=== PATIENT | female | born 1985 | race Asian ===

== ENCOUNTER 2020-07-12 04:20 | Day surgery (SDC) | payer OTHER ==
[2020-07-11 16:39] VITALS: BMI 21.5
[2020-07-12] MEDS ORDERED: ONDANSETRON 4 MG/2 ML VIAL IVPUSH PRN (13:13)
[2020-07-12] MEDS ORDERED: oxyCODONE HCL 5 MG TABLET PO PRN (13:13)
[2020-07-12] MEDS ORDERED: ACETAMINOPHEN 325 MG TABLET (FP) PO PRN (13:13)
[2020-07-12] MEDS ORDERED: LACTATED RINGERS SOLUTION 1,000 ML IV SCH (13:15)
[2020-07-12] MEDS ORDERED: PROPOFOL 20 ML ONE (13:30)
[2020-07-12] MEDS ORDERED: KETOROLAC TROMETHAMINE 30 MG/1 ML VIAL ONE (13:30)
[2020-07-12] MEDS ORDERED: MIDAZOLAM HCL 2 MG/2 ML SINGLE DOSE VIAL ONE (13:30)
[2020-07-12] MEDS ORDERED: LIDOCAINE HCL/PF 2% SDV 5ML VIAL ONE (13:30)
[2020-07-12] MEDS ORDERED: ONDANSETRON 4 MG/2 ML VIAL ONE (14:17)
[2020-07-12 16:31] VITALS: TEMP 97.8
[2020-07-12 18:11] VITALS: BP 120/70; PULSE 68
== END 2020-07-12 17:00 | disposition home or self-care (01) ==
LOC: JASU-SURG 04:20
PROVIDERS: ATTEND Obstetrics & Gynecology
PROC: 10D17ZZ Extraction of Products of Conception, Retained, Via Natural or Artificial Opening (ICD-10-PCS; principal; 2020-07-12 14:00)
DX: O03.4 Incomplete spontaneous abortion without complication (principal)
CPT/HCPCS: 86850; 86900; 86901; 88305-TC; 94760

== ENCOUNTER 2021-10-16 10:14 | Emergency (ER) | payer OTHER ==
[2021-10-16 10:26] VITALS: BMI 23.3
[2021-10-16 12:35] LABS: BASO % 0.5 % (0-2.0); EOS % 2.4 % (0-4.5); HEMATOCRIT 36.8 % (32.4-45.2); HEMOGLOBIN 12.1 GM/dL (10.7-15.3); LYMPH % 11.9 % (8-40); MCH 27.9 pg (25.7-33.7); MCHC 32.8 g/dl (32.0-36.0); MEAN PLT VOLUME 11.2 fl (7.5-11.1); MONO % 4.6 % (3.8-10.2); NEUT % 80.6 % (42.8-82.8); PLATELET COUNT 139 10^3/uL (134-434); RBC 4.32 M/mm3 (3.60-5.2); RDW 14.7 % (11.6-15.6); WHITE BLOOD COUNT 8.7 K/mm3 (4.0-10.0)
[2021-10-16 12:36] LABS: PH,URINE 6.5 (5.0-8.0); URINE APPEARANCE CLEAR; URINE BILIRUBIN NEGATIVE (NEGATIVE); URINE COLOR YELLOW; URINE GLUCOSE (UA) 3+ (NEGATIVE); URINE KETONE NEGATIVE (NEGATIVE); URINE LEUK ESTERASE NEGATIVE (NEGATIVE); URINE NITRITE NEGATIVE (NEGATIVE); URINE PROTEIN NEGATIVE (NEGATIVE); URINE UROBILINOGEN 0.2 mg/dL (0.2-1.0)
[2021-10-16 12:55] LABS: ALBUMIN 2.8 g/dl (3.4-5.0); BLOOD UREA NITROGEN 5.6 mg/dL (7-18); CALCIUM 8.5 mg/dL (8.5-10.1)
[2021-10-16 12:58] LABS: CREATININE 0.5 mg/dL (0.55-1.3)
[2021-10-16 13:00] LABS: BILIRUBIN,TOTAL 0.3 mg/dL (0.2-1); TOT PROT 6.6 g/dl (6.4-8.2)
[2021-10-16] MEDS ORDERED: ACETAMINOPHEN 1000 MG/100 ML BAG IVPB ONE (13:14)
[2021-10-16] MEDS ORDERED: SODIUM CHLORIDE 0.9% 500 ML INFUS.BAG IV ONE (13:14)
[2021-10-16] MEDS ORDERED: ONDANSETRON 4 MG/2 ML VIAL IVPUSH ONE (13:14)
[2021-10-16] MEDS ORDERED: ACETAMINOPHEN INJECTION 100 ML IVPB ONE (13:45)
[2021-10-16] MEDS ORDERED: ONDANSETRON 4 MG/2 ML VIAL ONE (13:45)
[2021-10-16 14:21] LABS: CALCIUM 8.7 mg/dL (8.5-10.1)
[2021-10-16 14:22] LABS: BLOOD UREA NITROGEN 4.7 mg/dL (7-18)
[2021-10-16 14:25] LABS: CREATININE 0.5 mg/dL (0.55-1.3)
[2021-10-16 16:02] VITALS: BP 104/68; PULSE 80; TEMP 97.1
== END 2021-10-16 16:35 | disposition home or self-care (01) ==
LOC: JER 10:14
PROC: 3E033GC Introduction of Other Therapeutic Substance into Peripheral Vein, Percutaneous Approach (ICD-10-PCS; principal; 2021-10-16)
DX: O26.892 Other specified pregnancy related conditions, second trimester (principal); N13.30 Unspecified hydronephrosis; Z3A.19 19 weeks gestation of pregnancy
CPT/HCPCS: 36415; 76775-TC; 76815-TC; 80048; 80053; 81003; 85025; 99284-25

== ENCOUNTER 2022-02-12 10:55 | Inpatient (IN) | payer OTHER ==
[2022-02-12 11:38] LABS: RETICULOCYTES 1.3 % (0.5-1.5)
[2022-02-12 11:39] LABS: HEMATOCRIT 40.1 % (32.4-45.2); HEMOGLOBIN 12.7 GM/dL (10.7-15.3); LYMPH % 22.8 % (8-40); MCH 27.1 pg (25.7-33.7); MCHC 31.8 g/dl (32.0-36.0); MEAN CELL VOLUME 85.4 fl (80-96); MEAN PLT VOLUME 10.7 fl (7.5-11.1); MONO % 4.1 % (3.8-10.2); NEUT % 71.1 % (42.8-82.8); PLATELET COUNT 134 10^3/uL (134-434); RBC 4.69 M/mm3 (3.60-5.2); RDW 15.9 % (11.6-15.6); WHITE BLOOD COUNT 7.6 K/mm3 (4.0-10.0)
[2022-02-12 11:52] LABS: INR 0.91 (0.83-1.09); PROTHROMBIN TIME (PATIENT) 10.5 SEC (9.7-13.0)
[2022-02-12 11:55] LABS: ACTIVATED PTT 28.5 SECONDS (25.2-36.5)
[2022-02-12] MEDS ORDERED: CITRIC ACID/SODIUM CITRATE 30 ML UNIT-DOSE CUP PO ONE (11:55)
[2022-02-12] MEDS ORDERED: ELECTROLYTE-148 SOLN 500 ML IV ONE (11:55)
[2022-02-12 11:59] LABS: BLOOD UREA NITROGEN 8.3 mg/dL (7-18); CALCIUM 9.6 mg/dL (8.5-10.1)
[2022-02-12] MEDS ORDERED: ELECTROLYTE-148 SOLN 1,000 ML IV SCH ×2 (12:00→12:30)
[2022-02-12] MEDS ORDERED: ELECTROLYTE-148 SOLN 500 ML IV SCH (12:00)
[2022-02-12 12:02] LABS: CREATININE 0.5 mg/dL (0.55-1.3); SGOT/AST 55 U/L (15-37); SGPT/ALT 126 U/L (13-61); URIC ACID 2.9 mg/dL (2.6-7.2)
[2022-02-12 12:34] VITALS: BMI 24.3
[2022-02-12 13:19] LABS: GAMMA GLUTAMYL TRANSPEPTIDASE 24 U/L (5-85)
[2022-02-12] MEDS ORDERED: OXYTOCIN 30 UNITS in 0.9% NS 30 UNIT/500 ML INFUS.BAG IVPB ONE (13:20)
[2022-02-12] MEDS ORDERED: ceFAZolin SODIUM 1 GM VIAL ONE (13:21)
[2022-02-12] MEDS ORDERED: ONDANSETRON 4 MG/2 ML VIAL ONE (13:21)
[2022-02-12] MEDS ORDERED: METOCLOPRAMIDE HCL INJECTION 10 MG/2 ML VIAL ONE (13:21)
[2022-02-12] MEDS ORDERED: morphine SULFATE/PF 1 MG/2 ML (2cc Syringe - QUVA) ONE (13:22)
[2022-02-12] MEDS ORDERED: morphine SULFATE/PF 1 MG/2 ML (2cc Syringe - QUVA) IT ONE (13:45)
[2022-02-12] MEDS: OXYTOCIN 20 UNITS in 0.9% NS 20 UNIT/1,000 ML INFUS.BAG IV SCH (14:04)
[2022-02-12] MEDS ORDERED: KETOROLAC TROMETHAMINE 30 MG/1 ML VIAL ONE (14:22)
[2022-02-12 14:55] LABS: CORD BASE EXCESS -3.2 mmol/L (0-2); CORD HCO3 26.3 mmHg (20-29); CORD PCO2 66.9 mmHg (30-78); CORD pH 7.213 (7.14-7.44)
[2022-02-12] MEDS ORDERED: ACETAMINOPHEN 325 MG TABLET (FP) PO PRN (14:58)
[2022-02-12] MEDS ORDERED: METHYLERGONOVINE MALEATE 0.2 MG/1 ML AMP IM PRN (14:58)
[2022-02-12 14:59] LABS: CORD HCO3 27.7 mmHg (20-29); CORD pH 7.141 (7.14-7.44)
[2022-02-12] MEDS ORDERED: ONDANSETRON 4 MG/2 ML VIAL IVPUSH PRN (15:05)
[2022-02-12] MEDS: IBUPROFEN 800 MG/8 ML IJ IVPB PRN (15:17)
[2022-02-12] MEDS ORDERED: IBUPROFEN 800 MG/8 ML IJ IVPB ONE (15:56)
[2022-02-12] MEDS ORDERED: OXYTOCIN 20 UNITS in 0.9% NS 20 UNIT/1,000 ML INFUS.BAG IV ONE (15:56)
[2022-02-12] MEDS: INSULIN SLIDING SCALE (NOVOLOG) 1 VIAL SQ SCH (18:03)
[2022-02-12] MEDS ORDERED: INSULIN (LEVEMIR) 100 UNITS/ML UNITS SQ SCH ×2 (22:00)
[2022-02-12 22:14] VITALS: RESP 18
[2022-02-13] MEDS: IBUPROFEN 800 MG/8 ML IJ IVPB PRN ×2 (00:22→10:28)
[2022-02-13] MEDS ORDERED: oxyCODONE HCL 5 MG TABLET PO PRN ×2 (02:58)
[2022-02-13] MEDS: OXYTOCIN 20 UNITS in 0.9% NS 20 UNIT/1,000 ML INFUS.BAG IV SCH (04:00)
[2022-02-13 07:53] LABS: BASO % 0.6 % (0-2.0); EOS % 0.7 % (0-4.5); HEMATOCRIT 32.4 % (32.4-45.2); HEMOGLOBIN 10.5 GM/dL (10.7-15.3); LYMPH % 18.6 % (8-40); MCH 27.5 pg (25.7-33.7); MCHC 32.3 g/dl (32.0-36.0); MEAN CELL VOLUME 85.3 fl (80-96); MEAN PLT VOLUME 11.5 fl (7.5-11.1); MONO % 4.2 % (3.8-10.2); NEUT % 75.9 % (42.8-82.8); PLATELET COUNT 106 10^3/uL (134-434); RDW 15.5 % (11.6-15.6); WHITE BLOOD COUNT 7.9 K/mm3 (4.0-10.0)
[2022-02-13 08:23] LABS: SGOT/AST 45 U/L (15-37); SGPT/ALT 72 U/L (13-61)
[2022-02-13] MEDS ORDERED: FLU VACC QS2022-23(6MOS UP)/PF 60 MCG/0.5 ML SYRINGE IM ONE (10:00)
[2022-02-13] MEDS: INSULIN SLIDING SCALE (NOVOLOG) 1 VIAL SQ SCH ×3 (10:34→17:30)
[2022-02-13] MEDS ORDERED: BISACODYL 10 MG SUPP.RECT RC PRN (14:58)
[2022-02-13] MEDS: IBUPROFEN 600 MG TABLET (FP) PO PRN ×2 (18:28→21:13)
[2022-02-13] MEDS: SIMETHICONE 80 MG TAB.CHEW (FP) PO PRN (21:13)
[2022-02-13] MEDS: INSULIN (LEVEMIR) 100 UNITS/ML UNITS SQ SCH (23:40)
[2022-02-14] MEDS: IBUPROFEN 600 MG TABLET (FP) PO PRN ×5 (01:55→22:01)
[2022-02-14] MEDS: SIMETHICONE 80 MG TAB.CHEW (FP) PO PRN ×2 (01:55→06:05)
[2022-02-14] MEDS: INSULIN SLIDING SCALE (NOVOLOG) 1 VIAL SQ SCH ×3 (08:30→17:35)
[2022-02-14] MEDS: INSULIN (LEVEMIR) 100 UNITS/ML UNITS SQ SCH (21:59)
[2022-02-15] MEDS: SIMETHICONE 80 MG TAB.CHEW (FP) PO PRN (06:51)
[2022-02-15 08:38] LABS: BASO % 0.5 % (0-2.0); EOS % 1.9 % (0-4.5); HEMATOCRIT 34.5 % (32.4-45.2); HEMOGLOBIN 10.8 GM/dL (10.7-15.3); MCH 27.1 pg (25.7-33.7); MCHC 31.3 g/dl (32.0-36.0); MEAN CELL VOLUME 86.8 fl (80-96); MEAN PLT VOLUME 10.9 fl (7.5-11.1); MONO % 5.7 % (3.8-10.2); NEUT % 63.9 % (42.8-82.8); PLATELET COUNT 160 10^3/uL (134-434); RBC 3.98 M/mm3 (3.60-5.2); RDW 15.8 % (11.6-15.6); WHITE BLOOD COUNT 6.4 K/mm3 (4.0-10.0)
[2022-02-15] MEDS: INSULIN SLIDING SCALE (NOVOLOG) 1 VIAL SQ SCH ×2 (08:55→11:44)
[2022-02-15 09:47] VITALS: BP 118/71; PULSE 80; TEMP 98.1
== END 2022-02-15 14:20 | disposition home or self-care (01) | DRG 786 ==
LOC: JLDR 10:55 → J3W 17:00
PROVIDERS: ADMIT Obstetrics & Gynecology; ATTEND Obstetrics & Gynecology
PROC: 10D00Z1 Extraction of Products of Conception, Low, Open Approach (ICD-10-PCS; principal; 2022-02-12)
DX: O28.8 Other abnormal findings on antenatal screening of mother (principal); O60.14X0 Preterm labor third trimester with preterm delivery third trimester, not applicable or unspecified; O99.12 Other diseases of the blood and blood-forming organs and certain disorders involving the immune mechanism complicating childbirth; O34.219 Maternal care for unspecified type scar from previous cesarean delivery; O24.424 Gestational diabetes mellitus in childbirth, insulin controlled; D69.6 Thrombocytopenia, unspecified; O77.0 Labor and delivery complicated by meconium in amniotic fluid; Z79.4 Long term (current) use of insulin; Z3A.36 36 weeks gestation of pregnancy; Z37.0 Single live birth
CPT/HCPCS: 36415; 36600; 80048; 82803; 82962; 82977; 83010; 84450; 84460; 84550; 85025; 85032; 85045; 85610; 85730; 86780; 86850; 86900; 86901; 87340; 88307-TC; C9803-CS; G0008; Q2036; U0003; U0005

== ENCOUNTER 2024-03-26 10:05 | Inpatient (IN) | payer OTHER ==
[2024-03-26 13:50] VITALS: BP 114/60; PULSE 75; RESP 20; TEMP 98.2; BMI 20.9
[2024-03-26 14:03] LABS: BASO % 0.9 % (0-2.0); EOS % 1.6 % (0-4.5); HEMATOCRIT 38.2 % (32.4-45.2); LYMPH % 32.9 % (8-40); MCH 25.5 pg (25.7-33.7); MCHC 31.4 g/dl (32.0-36.0); MEAN CELL VOLUME 81.2 fl (80-96); MEAN PLT VOLUME 10.8 fl (7.5-11.1); MONO % 5.5 % (3.8-10.2); NEUT % 59.1 % (42.8-82.8); PLATELET COUNT 155 10^3/uL (134-434); RBC 4.71 M/mm3 (3.60-5.2); RDW 17.7 % (11.6-15.6); WHITE BLOOD COUNT 7.4 K/mm3 (4.0-10.0)
[2024-03-26 14:08] LABS: INR 0.93 (0.83-1.09); PROTHROMBIN TIME (PATIENT) 10.5 SEC (9.7-13.0)
[2024-03-26 14:10] LABS: ACTIVATED PTT 27.6 SECONDS (25.2-36.5)
[2024-03-26 14:18] LABS: CHLORIDE 106 mmol/L (98-107); POTASSIUM 4.5 mmol/L (3.5-5.1); SODIUM 138 mmol/L (136-145)
[2024-03-26 14:20] LABS: CALCIUM 9.9 mg/dL (8.5-10.1)
[2024-03-26 14:21] LABS: ANION GAP 8 mmol/L (4-13); CO2 25 mmol/L (21-32); GLUCOSE,RANDOM 82 mg/dL (74-106)
[2024-03-26 14:23] LABS: BLOOD UREA NITROGEN 2.7 mg/dL (7-18); SGPT/ALT 17 U/L (13-61)
[2024-03-26 14:24] LABS: CREATININE 0.6 mg/dL (0.55-1.3); SGOT/AST 14 U/L (15-37)
[2024-03-26 14:25] LABS: BILIRUBIN,TOTAL 0.4 mg/dL (0.2-1); TOT PROT 7.6 g/dl (6.4-8.2)
[2024-03-26 14:26] LABS: ALK PHOS 102 U/L (45-117)
== END 2024-03-26 15:03 | disposition short-term general hospital (02) | DRG 832 ==
LOC: JDEL 10:05 → JLDR 13:00
PROVIDERS: ADMIT Obstetrics & Gynecology; ATTEND Obstetrics & Gynecology
DX: O36.4XX0 Maternal care for intrauterine death, not applicable or unspecified (principal); O44.02 Complete placenta previa NOS or without hemorrhage, second trimester; Z3A.22 22 weeks gestation of pregnancy
CPT/HCPCS: 36415; 76801-TC; 80053; 85025; 85610; 85730; 86780; 86850; 86900; 86901; 87635